=== PATIENT | female | born 1965 | race Caucasian/White ===

== ENCOUNTER 2017-08-21 00:58 | Emergency (ER) | payer SELFPAY ==
[~2017-08-21] VITALS: Ht 154.9 cm; Wt 57.0 kg
[2017-08-21 01:29] VITALS: BP 158/74
== END 2017-08-21 02:24 | disposition left against medical advice (07) ==
LOC: ER 02:00
DX: Z53.21 Procedure and treatment not carried out due to patient leaving prior to being seen by health care provider (principal)